=== PATIENT | male | born 1960 | race Hispanic/Latino ===

== ENCOUNTER 2025-03-23 18:26 | Emergency (ER) | payer OTHER ==
[~2025-03-23] VITALS: Ht 167.6 cm; Wt 74.4 kg
[~2025-03-23 18:26] MED LIST: CLIN-141 PO
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
[2025-03-23] MEDS: CLINDAMYCIN 150 MG CAP PO ONE (18:48)
--- NOTE | 2025-03-23 18:57 | HMCIMG ---
EXAM: MAXILLOFACIAL/SINUS CT. HISTORY:Right orbital swelling, fall TECHNIQUE: Axial images through the face/sinuses was obtained. Thin section coronal and sagittal reformations were performed. This study was performed using automatic exposure control and an iterative reconstruction technique (radiation dose reduction software) to obtain a diagnostic image quality scan with patient dose as low as reasonably achievable. COMPARISON: Maxillofacial CT 08/14/2021 FINDINGS: No acute maxillofacial fracture. There is right greater than left maxillary sinus mucosal thickening, with hyperostosis present. The ethmoid sinuses are clear. Frontal sinuses and sphenoid sinuses are clear. Greater than the left maxillary sinus mucosal thickening, with hyperostosis present. Multiple dental extractions, respirations and caries are present, with bony hyperostosis along the posterior right mandible. Ostiomeatal units are patent. The middle ears and mastoid air cells are clear. The orbits are unremarkable. Overlying soft tissues are within normal limits. Visualized portions of the intracranial contents are unremarkable. A screw is present within the C2 body, in the setting of an os odontoideum. IMPRESSION: No acute maxillofacial fracture. Chronic maxillary sinusitis. Extensive dental disease. /[place]
[2025-03-23] MEDS: OCTYL 2-CYANOACRYLATE 1 EACH TP ONE (19:19)
[2025-03-23] MEDS ORDERED: CLIN-141 PO (19:23)
[2025-03-23] MEDS ORDERED: IBUP-2077 PO (19:23)
[2025-03-23 19:37] VITALS: BP 131/88; PULSE 71; RESP 16; TEMP 98.1; O2SAT 98
== END 2025-03-23 19:39 | disposition home or self-care (01) ==
LOC: EDH 18:26
DX: S01.111A Laceration without foreign body of right eyelid and periocular area, initial encounter (principal); S05.11XA Contusion of eyeball and orbital tissues, right eye, initial encounter; S09.90XA Unspecified injury of head, initial encounter; I10 Essential (primary) hypertension; W18.39XA Other fall on same level, initial encounter; Y93.55 Activity, bike riding; Y92.89 Other specified places as the place of occurrence of the external cause; Y99.8 Other external cause status
CPT/HCPCS: 12011; 70486; 99284